=== PATIENT | female | born 1995 | race Two or more races ===

== ENCOUNTER 2017-06-22 20:37 | Emergency (ER) | payer OTHER ==
[~2017-06-22] VITALS: Ht 149.9 cm; Wt 48.7 kg
[2017-06-22 20:54] VITALS: BP 119/86
[2017-06-22] MEDS ORDERED: IBUPROFEN 200 MG TABLET ONE (22:16)
[2017-06-22] MEDS ORDERED: DIAZEPAM 5 MG TABLET ONE (22:16)
[2017-06-22] MEDS ORDERED: IBUPROFEN 200 MG TABLET PO ONE (22:30)
[2017-06-22] MEDS ORDERED: DIAZEPAM 5 MG TABLET PO ONE (22:30)
== END 2017-06-22 22:29 | disposition home or self-care (01) ==
LOC: ED 22:25
DX: S16.1XXA Strain of muscle, fascia and tendon at neck level, initial encounter (principal); V49.09XA Driver injured in collision with other motor vehicles in nontraffic accident, initial encounter; Y93.89 Activity, other specified; Y99.8 Other external cause status; Y92.410 Unspecified street and highway as the place of occurrence of the external cause
CPT/HCPCS: 72020; 72050; 99284